=== PATIENT | male | born 1945 | race American Indian/Alaskan Native ===

== ENCOUNTER 2016-08-06 12:30 | Outpatient (CLI) | payer MEDICARE ==
--- NOTE | 2016-08-06 14:11 | Ultrasound Report ---
ULTRASOUND BLADDER RESIDUAL: INDICATION: Abdominal pain in male. Urinary retention. COMPARISON: None similar. FINDINGS: Sonographic estimation of pre- and postvoid urinary bladder volume performed. Prevoid urinary bladder poorly distended with estimated volume of 1.2 cc. Patient unable to void any. CONCLUSION: Poorly distended urinary bladder without significant voiding or residual, as described. Please correlate. Thank you for the opportunity to participate in this patient's care.
== END 2016-08-06 12:31 | disposition home or self-care (01) ==
LOC: US 12:30
PROVIDERS: ATTEND Internal Medicine Nephrology
DX: R10.9 Unspecified abdominal pain (principal); R33.9 Retention of urine, unspecified
CPT/HCPCS: 76857

== ENCOUNTER 2016-09-01 09:21 | Day surgery (SDC) | payer MEDICARE ==
[~2016-09-01 09:21] MED LIST: ANCEF/STERILE WATER 2 GM/20 ML 2 GM/20 ML SYRINGE IV NR; NACL 0.9% 1000 ML 1,000 ML IV SCH
[2016-09-01 10:59] LABS: Hematocrit 30.8 % (35.5-45.6); Hemoglobin 9.7 gm/dl (11.8-15.2); Mean Corpuscular HGB Conc 31 % (32-34); Mean Corpuscular Hemoglobin 27 pg (28-32); Mean Corpuscular Volume 86 fl (84-94); Platelet Count 200 K/mm3 (140-440); Red Blood Count 3.58 M/mm3 (3.65-5.03); Red Cell Distribution Width 18.7 % (13.2-15.2); White Blood Count 8.3 K/mm3 (4.5-11.0)
[2016-09-01 11:05] LABS: INR 1.04 (0.87-1.13)
[2016-09-01 11:14] LABS: INR TNR (0.87-1.13); Partial Thromboplastin Time 29.4 Sec. (24.2-36.6)
[2016-09-01 11:46] LABS: BUN/Creatinine Ratio 3.98; Chloride 95.7 mmol/L (98-107); Potassium 3.5 mmol/L (3.6-5.0)
[2016-09-01 11:50] LABS: Blastocytes % (Manual) 0 %
[2016-09-01 11:51] LABS: Target Cells Few
[2016-09-01 11:52] LABS: Anisocytosis Few; Elliptocytes Few; Helmet Cells Rare; Hypochromasia Few; Poikilocytosis Few
[2016-09-01 11:53] LABS: Diff Status Complete; Platelet Estimate Consistent w Auto
[2016-09-01] MEDS ORDERED: HEPARIN 10,000 UNITS/10 ML ONE (12:11)
[2016-09-01] MEDS ORDERED: HEPARIN/NS 5000 UNIT/500ML(CATH LAB) 1,000 ML IR ONE (12:11)
[2016-09-01] MEDS ORDERED: VANCOMYCIN/NS 1 GM/250 ML 1 GM/250 ML BAG IV ONE (12:12)
[2016-09-01] MEDS: SUBLIMAZE ONE ×2 (12:22→12:35)
[2016-09-01] MEDS: VERSED ONE ×2 (12:23→12:35)
[2016-09-01] MEDS: XYLOCAINE 1%/ EPI 1:100,000 INFILTRATI ONE ×2 (12:23→12:39)
[2016-09-01] MEDS ORDERED: HEPARIN/NS 5000 UNIT/500ML(CATH LAB) 500 ML IR ONE (13:04)
[2016-09-01] MEDS ORDERED: NITROGLYCERIN SYRINGE 6 ML ONE (13:33)
--- NOTE | 2016-09-01 14:12 | Short Stay Summary ---
Short Stay Documentation Date of service: 09/01/16 Narrative H&P: See H&P - History H&P: obtained from office - Allergies and Medications Current Medications: Allergies levofloxacin [From Levaquin] Allergy (Severe, Verified 09/01/16 10:17) Rash Home Medications Medication Instructions Recorded Confirmed Last Taken Type Docusate Sodium [Colace CAP] 100 mg PO BID 03/22/13 06/30/14 06/29/14 History Simvastatin 40 mg PO HS 03/22/13 09/01/16 08/31/16 History 40mg Insulin Glargine,Hum.rec.anlog 24 units SQ HS 03/23/13 09/01/16 08/31/16 21:30 History [Lantus Solostar] 12 units Insulin Lispro [Humalog Kwikpen] 8 units SUB-Q TIDWM 11/17/13 09/01/16 08/31/16 History 8 units Aspirin EC [Aspirin Enteric Coated 81 mg PO DAILY 09/01/16 09/01/16 08/31/16 History TAB] 81mg Clopidogrel Bisulfate [Plavix] 75 mg PO DAILY 09/01/16 09/01/16 08/31/16 History 75mg Magnesium Oxide [Magnesium] 400 mg PO DAILY 09/01/16 09/01/16 08/31/16 History 400mg Metoprolol [Lopressor TAB] 25 mg PO DAILY 09/01/16 09/01/16 09/01/16 06:00 History 25mg Montelukast [Singulair] 10 mg PO HS 09/01/16 09/01/16 09/01/16 History 10mg Potassium Chloride [K-Dur] 20 meq PO DAILY 09/01/16 09/01/16 08/31/16 History 10meq Vit B Cplx #11/FA/C/Biot/Zn Ox 1 tab PO DAILY 09/01/16 09/01/16 08/31/16 History [Dialyvite with Zinc Tablet] 1 tab Active Medications Cefazolin Sodium (Ancef/Sterile Water 2 Gm/20 Ml) 2 gm in 20 mls @ 80 mls/hr IV PREOP NR PRN Reason: Protocol Stop: 09/01/16 23:59 Sodium Chloride (Nacl 0.9% 1000 Ml) 1,000 mls @ 42 mls/hr IV DIRECT SEBASTIEN - Brief post op/procedure progress note Date of procedure: 09/01/16 Pre-op diagnosis: PVD with Left Foot Ulcerations Post-op diagnosis: same Procedure: 1. Ultrasound-Guided Access Right Common Femoral Artery 2. Diagnostic Aortogram with Left Lower Extremity Arteriogram (No Previous Films for Comparison) 3. Atherectomy with Angioplasty of Left Peroneal Artery with 2.4/3.4 JetStream Atherectomy Catheter and Tapered 3.5-3.0 x 220 Balloon 4. With Angioplasty of Left SFA and Popliteal Arteries with 2.4/3.4 JetStream Atherectomy Catheter and 6 x 200 Balloon 5. Angioplasty and Stent of Left External Iliac Artery with 8 x 40 Balloon and 9 x 60 Self-Expanding EverFlex Stent 6. Closure of Right Femoral Arteriotomy with 6 Slovak Angio-Seal 7. Radiologic Supervision with Interpretation Anesthesia: local, other (iv Sedation) Surgeon: FIDELINA REED Estimated blood loss: minimal Pathology: none Condition: stable - Disposition Condition at discharge: Good Disposition: DC-01 TO HOME OR SELFCARE Short Stay Discharge Plan Activity: other (no strenuous activity for 48 hours) Wound: remove dressing (48 hours) Follow up with: FIDELINA REED MD [Staff Physician] - 14 Days
--- NOTE | 2016-09-01 14:18 | Operative Report ---
Operative Report Operative Report: Date of Procedure: 09/01/2016 Pre-operative Diagnosis: PVD with Nonhealing Left Foot Ulcerations Post-operative Diagnosis: Same Procedure(s): 1. Ultrasound-Guided Access Right Common Femoral Artery 2. Diagnostic Aortogram with Left Lower Extremity Arteriogram (No Previous Films for Comparison) 3. Atherectomy with Angioplasty of Left Peroneal Artery with 2.4/3.4 JetStream Atherectomy Catheter and Tapered 3.5-3.0 x 220 Balloon 4. Atherectomy with Angioplasty and Stent of Left SFA and Popliteal Arteries with 2.4/3.4 JetStream Atherectomy Catheter and 6 x 200 Balloon and a 6 x 100 Tigris Self-expanding Stent 5. Angioplasty and Stent of Left External Iliac Artery with 8 x 40 Balloon and 9 x 60 Self-Expanding EverFlex Stent 6. Closure of Right Femoral Arteriotomy with 6 Czech Angio-Seal 7. Radiologic Supervision with Interpretation Surgeon: Irvin Medina M.D. Justice Professor: None Anesthesia: Local and i.v. 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 He is recently had generalized edema secondary to decreased fluid exchange with his peritoneal dialysis. The swelling of his leg and foot resulted in breakdown of the skin in the area of ulceration on the dorsal aspect of the foot. Additionally he has multiple ulcers on the medial aspect of the calf just above the medial malleolus. He had previous ultrasound that demonstrated diminished flow to the left lower extremity requiring a diagnostic angiogram to evaluate his flow and possible intervention to improve his flow to assist in healing of his wounds. He was given the risks, benefits, and alternative procedures and consented to the procedure. Angiographic Findings: The aortogram demonstrated the aorta is widely patent without significant stenosis or aneurysmal dilatation. The right common iliac artery had approximately 30% stenosis. The left common iliac artery was widely patent. The left hypogastric artery was occluded at its origin in reconstituted through collateral flow. There was approximately 50% stenosis of the midportion of the external iliac artery on the left. The remainder of the left lower sternal runoff demonstrated that the left common femoral and profunda artery were widely patent. There was approximately 60% stenosis of a long segment of the proximal SFA. The remainder of the SFA was widely patent and there was approximately 60% stenosis of the mid and distal popliteal artery. The anterior tibial artery occluded shortly after this origin and reconstituted in an atretic dorsalis pedis artery in the foot. The posterior tibial artery was occluded at its origin and reconstituted through collaterals in the foot. The peroneal artery was a dominant artery with approximately 50% stenosis in the proximal portion. The remainder of the artery was widely patent with multiple collaterals to fill the dorsalis pedis and posterior tibial arteries in the foot. After intervention there was approximately 10% residual stenosis in the external iliac artery. The SFA was widely patent without significant residual stenosis as well as the popliteal artery after placing the stent. The peroneal artery appeared to be widely patent with less than 10% residual stenosis. Description of Procedure: The patient was brought to the laborer chemical processing and laid in supine position. After he was adequately sedated his right groin was prepped and draped in normal sterile fashion. Ultrasound was used to identify the right common femoral artery in the overlying skin and soft tissue was anesthetized with lidocaine. A small stab incision was made and a micropuncture technique was used ultrasound guidance and the right common femoral artery and a 5 Czech sheath was placed by Seldinger technique. A Bentson wire and an Omni flush catheter were advanced into the aorta and an aortogram was performed. The Bentson wire was reinserted and the catheter and wire were advanced up and over the bifurcation and the left lower extremity runoff was performed with the previously described findings. A 0.035 Advantage wire was advanced down to the peroneal artery and a 7 Czech 45 cm destination sheath was placed by Seldinger technique. At this point the patient was systemically heparinized with 5000 units of heparin IV. I was able to cannulate the origin of the anterior tibial artery with the 0.035 Advantage Wire and a Navicross Catheter however I was unable to traverse the entire occlusion and reenter in the dorsalis pedis artery. At this point I abandoned the attempts and advanced a wire and catheter into the peroneal artery. I exchanged the advantage wire for a 0.014 Spartacore wire. I then performed atherectomy of the lesions in the SFA, popliteal, and proximal peroneal arteries using the 2.4/3.4 JetStream Atherectomy Catheter. I performed angioplasty of the peroneal artery using the Tapered 3.5-3.0 x 220 Balloon was a result of less than 10% residual stenosis. I will perform angioplasty of the SFA and popliteal artery lesions with a 6 x 200 balloon with a result of a widely patent superficial femoral artery however there was approximately 30% residual stenosis in the popliteal artery with an area of dissection so I treated this with a 6 x100 Tigris Self-Expanding stent that was postdilated with the 6 mm balloon. The result was a patent artery without significant residual stenosis. I pulled the sheath back into the common iliac artery on the left and then placed a 9 x 60 EveFlex Stent in the external iliac artery which was postdilated with an 8 x 40 Balloon. Follow-up result was a patent artery with approximately 10% residual stenosis. I pulled the sheath back into the right external iliac artery and advanced a wire into the aorta. I then used a 6 Czech Angio-Seal to close the right femoral arteriotomy. The patient tolerated the procedure well. All sponge, needle, and instrument counts were correct. The patient was taken to the recovery area in stable condition.
[2016-09-01] MEDS ORDERED: BENADRYL IV ONE (14:46)
[2016-09-01 16:05] VITALS: BP 121/66
== END 2016-09-01 16:30 | disposition home or self-care (01) ==
LOC: OPU 09:21
PROVIDERS: ATTEND Surgery Vascular Surgery
DX: I70.245 Atherosclerosis of native arteries of left leg with ulceration of other part of foot (principal); E11.22 Type 2 diabetes mellitus with diabetic chronic kidney disease; I12.0 Hypertensive chronic kidney disease with stage 5 chronic kidney disease or end stage renal disease; K21.9 Gastro-esophageal reflux disease without esophagitis; N18.6 End stage renal disease; Z99.2 Dependence on renal dialysis; Z89.611 Acquired absence of right leg above knee; Z89.432 Acquired absence of left foot; Z98.890 Other specified postprocedural states; Z79.899 Other long term (current) drug therapy; Z79.4 Long term (current) use of insulin; Z88.8 Allergy status to other drugs, medicaments and biological substances
CPT/HCPCS: 36415; 37221; 37227; 37229; 75710; 80048; 82962; 85007; 85025; 85610; 96374; C1724; C1725; C1760; C1769; C1876; C1887; J1200; J1644; J2250; J3010; J3370; Q9967

== ENCOUNTER 2017-03-27 08:53 | Day surgery (SDC) | payer MEDICARE ==
[2017-03-27] MEDS ORDERED: ANCEF/STERILE WATER 2 GM/20 ML 2 GM/20 ML SYRINGE IV NR (10:00)
[2017-03-27] MEDS ORDERED: XYLOCAINE 2% INFILTRATI ONE ×2 (10:28→13:01)
[2017-03-27] MEDS ORDERED: HEPARIN/NS 5000 UNIT/500ML(CATH LAB) 0 ML IR ONE (10:28)
[2017-03-27] MEDS ORDERED: NACL 0.9% 100 ML ONE (12:35)
[2017-03-27] MEDS ORDERED: SUBLIMAZE ONE (12:36)
[2017-03-27] MEDS ORDERED: HEPARIN/NS 5000 UNIT/500ML(CATH LAB) 500 ML IR ONE (12:36)
[2017-03-27] MEDS ORDERED: VERSED ONE (12:36)
[2017-03-27] MEDS: XYLOCAINE 2% INFILTRATI ONE ×2 (12:48→12:58)
[2017-03-27] MEDS ORDERED: ANCEF/STERILE WATER 2 GM/20 ML 2 GM/20 ML SYRINGE IV ONE (13:05)
[2017-03-27] MEDS: HEPARIN 10,000 UNITS/10 ML ONE ×2 (13:19→13:20)
--- NOTE | 2017-03-27 13:32 | Short Stay Summary ---
Short Stay Documentation Date of service: 03/27/17 Narrative H&P: 71 year old male with ESRD with permcath malfunction - History Principal diagnosis: Permcath malfunction H&P: obtained from office Past Medical History: dialysis - Allergies and Medications Current Medications: Allergies levofloxacin [From Levaquin] Allergy (Severe, Verified 09/01/16 10:17) Rash warfarin [From Coumadin] Allergy (Verified 03/27/17 09:27) Rash Home Medications Medication Instructions Recorded Confirmed Last Taken Type Insulin Lispro [Humalog Kwikpen] 8 units SUB-Q TIDWM 11/17/13 03/27/17 1 Week Ago History ~03/20/17 Aspirin EC [Aspirin Enteric Coated 81 mg PO DAILY 09/01/16 03/27/17 03/26/17 History TAB] B Complex 11/Folic/C/Biot/Zinc 1 tab PO DAILY 09/01/16 03/27/17 03/26/17 History [Dialyvite with Zinc Tablet] Clopidogrel Bisulfate [Plavix] 75 mg PO DAILY 09/01/16 03/27/17 03/26/17 History HYDROcodone/APAP 5-325 [[place] 1 each PO Q6HR PRN 03/27/17 03/27/17 03/26/17 History 5/325] Insulin Lispro [Humalog 100 8 units SQ AC 03/27/17 03/27/17 1 Week Ago History UNITS/ML Kwikpen] ~03/20/17 Levothyroxine Sodium [Synthroid] 25 mcg PO DAILY 03/27/17 03/27/17 03/26/17 History Metoprolol [Lopressor] 12.5 mg PO BID 03/27/17 03/27/17 03/26/17 History amLODIPine [Norvasc] 10 mg PO DAILY 03/27/17 03/27/17 03/26/17 History - Physical exam General appearance: no acute distress Lungs: Other (can breath on wedge, cannot lay flat) - Brief post op/procedure progress note Date of procedure: 03/27/17 Pre-op diagnosis: ESRD with permcath malfunction Post-op diagnosis: same Procedure: Permcath exchange with venography and venoplasty with a 12 mm angioplasty balloon Anesthesia: local (w/ conscious sedation) Surgeon: GINA PHAN Estimated blood loss: minimal Condition: stable - Hospital course Hospital course: Ready for discharge. - Disposition Condition at discharge: Stable Disposition: DC-01 TO HOME OR SELFCARE Short Stay Discharge Plan Activity: advance as tolerated Weight Bearing Status: Weight Bear as Tolerated Diet: renal Wound: keep clean and dry (do not get permcath wet) Follow up with: AYDIN GUZMAN MD [Primary Care Provider] - 7 Days
--- NOTE | 2017-03-27 13:41 | Operative Report ---
Operative Report Operative Report: EXAM: 1. Fluoroscopic guided exchange of a left internal jugular tunneled cuffed hemodialysis catheter. 2. Superior venacava venography 3. Angioplasty of the SVC and left innominate vein with a 12 mm x 60 mm angioplasty balloon DATE: 03/27/17 INDICATION: End-stage renal disease with PermCath malfunction. MEDICATIONS: Please see nursing report for full details. COMMERCIAL MANAGER: GINA PHAN MD DEVICES: 27 cm tip to cuff 15 Fr dual lumen hemodialysis catheter ; existing catheter was a 27 cm tip to cuff dual lumen hemodialysis catheter CONTRAST: 10 mL of nonionic contrast PROCEDURE: The risks, benefits, and alternatives were discussed and informed consent was obtained. The patient was transported to the angiography suite in satisfactory/ stable condition and was transported onto the angiography table. The patient was prepped and draped in a sterile fashion. The existing PermCath was prepped and draped in a sterile fashion. Neither lumen could be aspirated or flushed. A stiff angled Glidewire was advanced through one of the lumen of the existing PermCath and into the IVC. Lidocaine was used to anesthetize the existing PermCath dermatotomy. Using a hemostat, blunt dissection was used to free the existing cuff. The catheter was partially retracted over a wire. Wire and dermatotomy was cleaned with chlorprep. Over the 0.035 inch wire, the existing PermCath was removed and a 7 [place]an sheath was advanced over the wire. Digital subtraction venography was performed through this sheath demonstrating severe functional narrowing of the left innominate vein and SVC. 12 mm x 6 cm angioplasty balloon was advanced over the wire and used to perform angioplasty in the SVC and left innominate vein. The balloon was removed. Digital subtraction angiography was performed through the sheath. Digital subtraction angiography demonstrated minimal residual narrowing of the left innominate vein and SVC. A second 0.035 inch stiff angled Glidewire was passed into the IVC. Sheath was removed. Wires were cleaned again with ChloraPrep. A new PermCath was advanced over the wire and position centrally under fluoroscopic guidance. 2-0 Ethilon suture was used to secure the catheter at the dermatotomy. The catheter was charged with heparin 1000 units per mL of space. Sterile Biopatch and dressing applied. The patient was transferred from the angiography suite back to the recovery area in stable condition. FINDINGS: 1. Excellent flow was obtained through the dialysis catheter with 20 mL syringes. 2. The new catheter tip is in the right atrium. 3. Superior vena cava venography demonstrates severe functional narrowing of the superior vena cava and left innominate vein. After angioplasty, there is minimal residual narrowing of the left innominate vein and SVC. IMPRESSION: 1. Successful fluoroscopic guided replacement of a left internal jugular tunneled cuffed hemodialysis catheter. 2. Successful angioplasty of the SVC and left innominate vein with a 12 mm x 60 mm angioplasty balloon.
[2017-03-27 14:46] VITALS: BP 130/34
== END 2017-03-27 15:05 | disposition home or self-care (01) ==
LOC: CATHLABREC 08:53
PROVIDERS: ATTEND Radiology Diagnostic Radiology
DX: I12.0 Hypertensive chronic kidney disease with stage 5 chronic kidney disease or end stage renal disease (principal); N18.6 End stage renal disease; E11.22 Type 2 diabetes mellitus with diabetic chronic kidney disease; K21.9 Gastro-esophageal reflux disease without esophagitis; Z79.4 Long term (current) use of insulin; Z79.82 Long term (current) use of aspirin; Z79.899 Other long term (current) drug therapy; Z98.890 Other specified postprocedural states; Z89.611 Acquired absence of right leg above knee
CPT/HCPCS: 36415; 36581; 37248; 77001; 82962; 84132; 99156; 99157; C1725; C1750; C1769; J0690; J1644; J2250; J3010; Q9967